=== PATIENT | female | born 1990 | race Two or more races ===

== ENCOUNTER 2017-03-09 18:40 | Emergency (ER) | payer MEDICAID ==
[~2017-03-09] VITALS: Ht 172.7 cm; Wt 86.2 kg
[2017-03-09] MEDS ORDERED: HYDROcodone-ACET 5/325MG TAB PO ONE ×2 (20:30→22:15)
[2017-03-09 20:50] VITALS: BP 112/60
[2017-03-09 20:55] LABS: Urine Bilirubin Negative (Negative); Urine Blood Negative /uL (Negative); Urine Color Yellow (Yellow); Urine Glucose Normal (Normal); Urine Ketone Negative (Negative); Urine Nitrite Negative (Negative); Urine RBC 5 /hpf (0 - 4); Urine Squamous Epithelial Cell FEW /hpf (<5)
== END 2017-03-09 22:15 | disposition home or self-care (01) ==
LOC: ER 18:49
DX: S83.91XA Sprain of unspecified site of right knee, initial encounter (principal); V49.59XA Passenger injured in collision with other motor vehicles in traffic accident, initial encounter; Y93.89 Activity, other specified; Y99.8 Other external cause status; Y92.410 Unspecified street and highway as the place of occurrence of the external cause
CPT/HCPCS: 29505; 36415; 73562; 73590; 81001; 84702

== ENCOUNTER 2018-11-08 15:36 | Emergency (ER) | payer MEDICAID ==
[~2018-11-08] VITALS: Ht 157.5 cm; Wt 86.6 kg
[2018-11-08 15:50] VITALS: BP 110/72
== END 2018-11-08 17:23 | disposition home or self-care (01) ==
LOC: ER 15:41
DX: Z32.02 Encounter for pregnancy test, result negative (principal)
CPT/HCPCS: 36415; 84702